=== PATIENT | male | born 1975 | race Caucasian/White ===

== ENCOUNTER 2024-05-19 07:15 | Day surgery (SDC) | payer MEDICARE ==
[~2024-05-19 07:15] MED LIST: Midazolam 1 MG/ML 2 ML SDV ONE; Propofol 200 MG/20 ML SDV ONE; fentaNYL 50 MCG/ML SDV ONE
[2024-05-19] MEDS: Lactated Ringers 1,000 ML IV SCH (08:11)
[2024-05-19] MEDS ORDERED: Propofol 200 MG/20 ML SDV ONE (08:53)
== END 2024-05-19 10:00 | disposition home or self-care (01) ==
LOC: JP.SDS 07:15
PROVIDERS: ATTEND Surgery
DX: D12.5 Benign neoplasm of sigmoid colon (principal); I25.10 Atherosclerotic heart disease of native coronary artery without angina pectoris
CPT/HCPCS: 00811; 45390; J2250; J2704; J3010; J7120; 88305